=== PATIENT | female | born 1945 | race Caucasian/White ===

== ENCOUNTER 2018-06-01 10:15 | Observation (INO) | payer OTHER, MEDICARE ==
[2018-06-01] MEDS ORDERED: FAMOTIDINE 20 MG TAB PO ONE (10:28)
[2018-06-01] MEDS ORDERED: diphenhydrAMINE 25 MG CAP PO ONE (10:28)
[2018-06-01] MEDS ORDERED: NS 1,000 ML IV ONE (10:28)
[2018-06-01] MEDS ORDERED: ASPIRIN EC 325 MG TAB PO ONE (10:28)
[2018-06-01] MEDS ORDERED: DIAZEPAM 5 MG TAB PO ONE (10:28)
[2018-06-01 11:00] LABS: PLATELET COUNT 198 10^3/uL (150-400)
[2018-06-01 11:09] LABS: INR 1.08 (0.83-1.16); PROTIME(PATIENT) 13.6 SEC (12.0-15.0)
[2018-06-01] MEDS ORDERED: IOPAMIDOL (ISOVUE-370) 150 ML BTL IV ONE (12:47)
[2018-06-01] MEDS ORDERED: VERAPAMIL 5 MG/2 ML VIAL ONE (12:47)
[2018-06-01] MEDS ORDERED: HEPARIN 10,000 UNIT/10 ML MDV (1,000 UNIT/ML) ONE (12:47)
[2018-06-01] MEDS ORDERED: LIDOCAINE 1% 300 MG/30 ML SDV ONE (12:47)
[2018-06-01] MEDS ORDERED: MIDAZOLAM 2 MG/2 ML VIAL ONE ×2 (14:11→14:50)
[2018-06-01] MEDS ORDERED: fentaNYL 100 MCG/2 ML INJ ONE (14:11)
[2018-06-01] MEDS ORDERED: CLOPIDOGREL BISULFATE 75 MG TAB ONE (15:12)
[2018-06-01] MEDS ORDERED: HYDROCODONE/APAP 5/325 TAB PO PRN (15:35)
[2018-06-01] MEDS ORDERED: ONDANSETRON 4 MG/2 ML VIAL IVP PRN (15:35)
[2018-06-01] MEDS ORDERED: ATROPINE SULFATE 1 MG/10 ML SYR IVP PRN (15:35)
[2018-06-01] MEDS ORDERED: ACETAMINOPHEN 325 MG TAB PO PRN (15:35)
[2018-06-01] MEDS ORDERED: NITROGLYCERIN 0.4 MG BTL SL PRN (15:35)
[2018-06-01] MEDS ORDERED: ONDANSETRON DISINTEGRATING 4 MG TAB PO PRN (15:35)
[2018-06-01] MEDS ORDERED: TEMAZEPAM 15 MG CAP PO PRN (15:35)
[2018-06-01] MEDS ORDERED: CLOPIDOGREL BISULFATE 75 MG TAB PO ONE (15:35)
[2018-06-01] MEDS ORDERED: NS 1,000 ML IV SCH (15:45)
--- NOTE | 2018-06-01 15:47 | PDDXCAT ---
Diagnostic Cath Note - . 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 LAD: Mild irregularities throughout. Focal 90% mid-LAD stenosis. LCX: Mild irregularities throughout. RCA: Mid-RCA with wntf-as-oahsmovk irregularities. EDP: 19 mmHg LVEF: 65% Wall motion: Normal Complications: None Estimated blood loss: <50ml Closure method: TR Band Assessment: 1) Normal left ventricular systolic function. 2) Coronary artery disease as described above. 3) Successful PCI of the LAD with placement of a single drug coated stent. Plan: The patient will need aggressive secondary prevention. Her preprocedure laboratory studies demonstrated an LDL cholesterol of 123. Her daily simvastatin 20 mg will be replaced with atorvastatin 40 mg. Intervention: Based on the patient's clinical history and diagnostic angiography, the decision was made to perform PCI of the LAD. The patient received 2500 units of IV heparin in addition to the 5000 units that had been given at the beginning of the procedure. A 5 [place] LBU guiding catheter was advanced to the left main. An Intuition guidewire was advanced to the distal LAD. Predilatation of the target lesion in the mid-LAD was performed using a 2.5 x 8 mm Emerge balloon. A 3.0 x 12 mm Synergy stent was advanced into position and deployed at high pressure. Final angiograms demonstrated 0% residual stenosis and JODI-III flow.
--- NOTE | 2018-06-01 17:18 | CPEKG ---
Test Reason : OPEN Blood Pressure : / mmHG Vent. Rate : 078 BPM Atrial Rate : 077 BPM P-R Int : 172 ms QRS Dur : 087 ms QT Int : 381 ms P-R-T Axes : 054 -17 038 degrees QTc Int : 434 ms Sinus rhythm Borderline left axis deviation Q waves inferior leads. Confirmed by Jordan Niño ([id number]) on 06/01/2018 5:18:24 PM Referred By: Flavio Mixon Confirmed By:Jordan Niño
--- NOTE | 2018-06-01 17:20 | CPEKG ---
Test Reason : OPEN Blood Pressure : / mmHG Vent. Rate : 072 BPM Atrial Rate : 072 BPM P-R Int : 196 ms QRS Dur : 088 ms QT Int : 397 ms P-R-T Axes : 048 -20 030 degrees QTc Int : 435 ms Sinus rhythm Borderline left axis deviation Q waves inferior leads, possible old inferior NM. Confirmed by Jordan Niño ([id number]) on 06/01/2018 5:20:50 PM Referred By: Flavio Mixon Confirmed By:Jordan Niño
[2018-06-02 07:26] VITALS: BP 128/71
[2018-06-02] MEDS ORDERED: CLOPIDOGREL BISULFATE 75 MG TAB PO SCH (09:00)
[2018-06-02] MEDS ORDERED: ATORVASTATIN CALCIUM 40 MG TAB PO SCH (09:00)
[2018-06-02] MEDS ORDERED: ASPIRIN EC 325 MG TAB PO SCH (09:00)
--- NOTE | 2018-06-02 10:10 | PDDCSUM ---
Discharge Summary Discharge Summary: Admission date 06/01/2018 Discharge date 06/02/2018 Admission diagnosis crescendo angina Discharge diagnosis crescendo angina status post successful stenting of the LAD , coronary artery disease, hyperlipidemia Follow-up [facility] 1 week, referral cardiac rehabilitation, Dr. Katherine Harper 2 weeks. Procedures: Left heart catheterization coronary and ventricular angiography with PCI and stenting of the LAD Hospital course: 73-year-old female electively admitted from the office with crescendo angina, abnormal nuclear stress test with septal dyskinesis and classic symptoms. She was taken the cardiac catheterization lab by my partner Dr. Flavio Mxion and found have critical LAD stenosis underwent successful PCI and stenting with a drug-eluting stent. She tolerated the procedure well she was up and walking. On physical examination today blood pressure was 130/70 , heart rate was 62, there was no JVP, chest was clear to auscultation percussion, cardiac exam showed a regular rate and rhythm, puncture site was healing well without ecchymosis erythema or edema. Laboratory data was stable. She was free of angina with activities of daily living. She is ready for discharge. Long-term plans were discussed. She will be continued on dual antiplatelet therapy indeterminately. High-dose statin therapy, clinical follow -up with cardiac rehabilitation. Patient is discharged home in stable condition. Questions were answered with her daughter. Medicines were reviewed. Follow-up as outlined above.
--- NOTE | 2018-06-02 12:40 | ASDISCHSUM ---
Discharge Information Plan Status:Home with No Needs Medically Cleared to Leave:06/02/2018 Discharge Date:06/02/2018 11:53 AM CM D/C Disposition:Home, Routine, Self-Care ADT D/C Disposition:Home, Routine, Self-Care Projected Discharge Date:06/02/2018 11:53 AM Transportation at D/C: Discharge Delay Reason: Follow-Up Date:06/02/2018 11:53 AM Discharge Slot: Final Diagnosis: Placement Information Patient Contact Information Contact Name:HORTENSIA Relationship:Daughter Address: Work Phone: City: [facility][1] Phone: State/[place] Code: Email: Financial Information Financial Class:Medicare Primary Plan Desc:MEDICARE OUTPATIENT Primary Plan Number:[id number] Secondary Plan Desc:[employer]/MDR SUPPLEMENT Secondary Plan Number:[id number] Assessment Information Intervention Information
== END 2018-06-02 11:53 | disposition home or self-care (01) ==
LOC: FCATH 10:15 → F2W 15:11
PROVIDERS: ADMIT Internal Medicine Interventional Cardiology; ATTEND Internal Medicine Interventional Cardiology
PROC: 4A023N7 Measurement of Cardiac Sampling and Pressure, Left Heart, Percutaneous Approach (ICD-10-PCS; principal; 2018-06-01)
PROC: 027034Z Dilation of Coronary Artery, One Artery with Drug-eluting Intraluminal Device, Percutaneous Approach (ICD-10-PCS; principal; 2018-06-01)
PROC: B2151ZZ Fluoroscopy of Left Heart using Low Osmolar Contrast (ICD-10-PCS; principal; 2018-06-01)
PROC: B2111ZZ Fluoroscopy of Multiple Coronary Arteries using Low Osmolar Contrast (ICD-10-PCS; principal; 2018-06-01)
DX: I25.110 Atherosclerotic heart disease of native coronary artery with unstable angina pectoris (principal); E78.5 Hyperlipidemia, unspecified
CPT/HCPCS: 93005; 93458; C1725; C1769; C1874; C1887; C9600; J1644; J2250; J3010; Q9967